=== PATIENT | male | born 1975 | race Caucasian/White ===

== ENCOUNTER 2016-04-14 06:48 | Inpatient (IN) | payer OTHER ==
[2016-04-14] VITALS (13 sets, daily range): BP systolic 114–135; BP diastolic 68–82
[~2016-04-14] VITALS: Ht 172.7 cm; Wt 87.5 kg
[~2016-04-14 06:48] MED LIST: ALEVE220 MG PO; ASPIR 8181 M1 PO; COLACE100 MG PO; FLEXERIL10 MG PO; GLUCOPHAGE500 MG PO; LANTUS 10100 UNITS/ SC; LANTUS 3 M100 UNITS1 SC; LANTUS100 UNIT/1 IJ; LEVEMIR FL100 UNIT/1 SC; LEVEMIR100 UNIT/2 SC; LISINOPRIL5 MG PO; LITE COAT ASPI325 M1 PO; METFORMIN HCL1000 M1 PO; METFORMIN HCL500 MG PO; Mag-Ox PO; NAPROSYN500 MG PO; NAPROXEN500 MG PO; NOVOLOG 10100 UNITS/ SC; NOVOLOG PE100 UNITS/ SC; NOVOLOG100 UNIT/1; ONDANSETRON ODT4 MG PO; PEN-VEE K,VEET500 MG PO; PENTASA500 MG PO; PROTONIX40 MG PO; REGLAN10 MG PO; TRAMADOL HCL50 MG PO; Tylenol Regular Stre PO; ULTRAM50 MG PO; Zestril,Prinivil PO; Zocor PO
[2016-04-14 08:06] LABS: EOSINOPHIL (%) 0.1 % (0-5); HEMATOCRIT 41.3 % (38.0-50.0); IMMATURE GRANULOCYTE (%) 0.3 % (0.0-0.7); IMMATURE GRANULOCYTE COUNT 0.6 K/uL; LYMPHOCYTE COUNT 1.2 K/uL (1.0-2.8); MCHC 34.9 G/DL (30.0-36.0); MCV 88.8 FL (86-99); MEAN PLAT.VOLUME 11.4 uM^3 (9.0-12.4); MONOCYTE (%) 2.8 % (3-12); MONOCYTE COUNT 0.5 K/uL (0-0.8); NEUTROPHIL (%) 90.5 % (45-76); NEUTROPHIL COUNT 16.9 K/uL (1.8-6.4); PLATELET COUNT 300 K/uL (156-360); RBC DIS.WIDTH-CV 13.1 % (11.8-14.6); RBC DIS.WIDTH-SD 41.7 % (39-53); RED BLOOD COUNT 4.65 M/uL (4.00-5.50); WHITE BLOOD COUNT 18.7 K/uL (4.1-10.2)
[2016-04-14 08:37] LABS: CARBON DIOXIDE (BICARBONATE) 11.3 MEQ/L (20-31)
[2016-04-14 08:51] LABS: ALKALINE PHOSPHATASE 109 IU/L (3-129); ANION GAP 32 MEQ/L (2-14); CHLORIDE 91 MEQ/L (99-109); GFR ESTIMATE (CALCULATED) > 59 mL/min/; LIPASE 8 U/L (1.0-51.0); POTASSIUM 4.9 MEQ/L (3.7-5.4); SAMPLE HEMOLYSIS CHECK 0; SAMPLE ICTERIC CHECK 0; SAMPLE LIPEMIA CHECK 0; SODIUM 132 MEQ/L (136-147); TOTAL BILIRUBIN 0.4 MG/DL (0.0-1.0); UREA NITROGEN (BUN) 16 mg/dL (9-23)
[2016-04-14 08:56] LABS: GLUCOSE 490 mg/dL (70-99)
[2016-04-14] MEDS ORDERED: NOVOLOG PE100 UNITS/ SC (09:55)
[2016-04-14] MEDS ORDERED: LEVEMIR100 UNIT/2 SC (09:56)
[2016-04-14 10:42] LABS: ADD MIUA? NO; BILIRUBIN NEGATIVE; BLOOD NEGATIVE; COLOR YELLOW ((YELLOW)); GLUCOSE (STRIP) >=1000; KETONES >=80; LEUKOCYTES NEGATIVE; NITRITE NEGATIVE; PH, URINE 5.5 (5-8); PROTEIN (STRIP) NEGATIVE; SPECIFIC GRAVITY 1.033 (1.000-1.030); UROBILINOGEN 0.2 MG/DL (0.2-1.0)
[2016-04-14 11:19] LABS: POINT-OF-CARE METER ID UU13113702
[2016-04-14 12:35] LABS: POINT-OF-CARE METER ID UU14162636
[2016-04-14 13:24] LABS: METH RESISTANT S AUREUS PCR NEGATIVE (NEGATIVE)
[2016-04-14 13:25] LABS: PROBE CHECK PASS; SPECIMEN PROCESSING CONTROL PASS
[2016-04-14 13:27] LABS: POINT-OF-CARE METER ID UU14162636
[2016-04-14 13:30] LABS: HEMATOCRIT 39.7 % (38.0-50.0); MCV 90.4 FL (86-99)
[2016-04-14 13:57] LABS: PROTHROMBIN TIME 9.7 (9.2-11.2)
[2016-04-14 14:08] LABS: POINT-OF-CARE METER ID UU14162636
[2016-04-14 14:10] LABS: Estimated Average Glucose 292 mg/dL (70-123); HEMOGLOBIN A1c (GLYCOHEMOGLOB) 11.8 % HGB (Below 5.7)
[2016-04-14 15:39] LABS: POINT-OF-CARE METER ID UU14162636
[2016-04-14 16:11] LABS: POINT-OF-CARE METER ID UU14162636
[2016-04-14 16:21] LABS: ANION GAP 14 MEQ/L (2-14); POTASSIUM 5.2 MEQ/L (3.7-5.4); SAMPLE HEMOLYSIS CHECK 0; SAMPLE ICTERIC CHECK 0; SAMPLE LIPEMIA CHECK 0; SODIUM 137 MEQ/L (136-147)
[2016-04-14 16:22] LABS: CHLORIDE 104 MEQ/L (99-109)
[2016-04-14 16:30] LABS: GFR ESTIMATE (CALCULATED) > 59 mL/min/; GLUCOSE 207 mg/dL (70-99); UREA NITROGEN (BUN) 12 mg/dL (9-23)
[2016-04-14 17:17] LABS: POINT-OF-CARE METER ID UU14162636
[2016-04-14 18:32] LABS: POINT-OF-CARE METER ID UU14162636
[2016-04-14 19:36] LABS: HEMATOCRIT 33.5 % (38.0-50.0); MCV 89.1 FL (86-99)
[2016-04-14 19:41] LABS: POINT-OF-CARE METER ID UU13113731
[2016-04-14 19:56] LABS: ANION GAP 11 MEQ/L (2-14); CHLORIDE 103 MEQ/L (99-109); GFR ESTIMATE (CALCULATED) > 59 mL/min/; GLUCOSE 235 mg/dL (70-99); POTASSIUM 4.3 MEQ/L (3.7-5.4); SAMPLE HEMOLYSIS CHECK 0; SAMPLE ICTERIC CHECK 0; SAMPLE LIPEMIA CHECK 0; SODIUM 135 MEQ/L (136-147); UREA NITROGEN (BUN) 11 mg/dL (9-23)
[2016-04-14 20:59] LABS: POINT-OF-CARE METER ID UU13113731
[2016-04-14 22:18] LABS: POINT-OF-CARE METER ID UU13113748
[2016-04-14 23:09] LABS: POINT-OF-CARE METER ID UU14162636
[2016-04-15] VITALS (21 sets, daily range): BP systolic 109–152; BP diastolic 61–87
[2016-04-15 00:41] LABS: CHLORIDE 103 mEq/L (99-109); SODIUM 135 mEq/L (136-147)
[2016-04-15 00:43] LABS: GLUCOSE 215 mg/dL (70-99)
[2016-04-15 00:44] LABS: ANION GAP 12 MEQ/L (2-14)
[2016-04-15 00:47] LABS: GFR ESTIMATE (CALCULATED) > 59 mL/min/
[2016-04-15 00:48] LABS: UREA NITROGEN (BUN) 9 mg/dL (9-23)
[2016-04-15 03:57] LABS: CHLORIDE 104 mEq/L (99-109); POTASSIUM 3.5 mEq/L (3.7-5.4); SODIUM 133 mEq/L (136-147)
[2016-04-15 03:59] LABS: GLUCOSE 202 mg/dL (70-99)
[2016-04-15 04:00] LABS: ANION GAP 9 MEQ/L (2-14)
[2016-04-15 04:03] LABS: GFR ESTIMATE (CALCULATED) > 59 mL/min/
[2016-04-15 04:04] LABS: UREA NITROGEN (BUN) 7 mg/dL (9-23)
[2016-04-15 09:08] LABS: ANION GAP 10 MEQ/L (2-14); CHLORIDE 103 MEQ/L (99-109); GFR ESTIMATE (CALCULATED) > 59 mL/min/; GLUCOSE 119 mg/dL (70-99); POTASSIUM 3.6 MEQ/L (3.7-5.4); SAMPLE HEMOLYSIS CHECK 0; SAMPLE ICTERIC CHECK 0; SAMPLE LIPEMIA CHECK 0; SODIUM 137 MEQ/L (136-147); UREA NITROGEN (BUN) 7 mg/dL (9-23)
[2016-04-15 12:46] LABS: ANION GAP 10 MEQ/L (2-14); CHLORIDE 102 MEQ/L (99-109); GFR ESTIMATE (CALCULATED) > 59 mL/min/; GLUCOSE 127 mg/dL (70-99); SAMPLE HEMOLYSIS CHECK 1; SAMPLE ICTERIC CHECK 0; SAMPLE LIPEMIA CHECK 0; SODIUM 137 MEQ/L (136-147); UREA NITROGEN (BUN) 6 mg/dL (9-23)
[2016-04-16 02:00] VITALS: BP 133/75
[2016-04-16 04:30] VITALS: BP 125/73
[2016-04-16 05:11] LABS: POINT-OF-CARE METER ID UU13113803
[2016-04-16 06:40] LABS: ANION GAP 11 MEQ/L (2-14); CHLORIDE 102 MEQ/L (99-109); GFR ESTIMATE (CALCULATED) > 59 mL/min/; SAMPLE HEMOLYSIS CHECK 0; SAMPLE ICTERIC CHECK 0; SAMPLE LIPEMIA CHECK 0; SODIUM 141 MEQ/L (136-147); UREA NITROGEN (BUN) 4 mg/dL (9-23)
[2016-04-16 06:41] LABS: GLUCOSE 43 mg/dL (70-99); POTASSIUM 2.7 MEQ/L (3.7-5.4)
[2016-04-16 07:54] VITALS: BP 144/86
[2016-04-16 08:17] LABS: POINT-OF-CARE USER ID ENVKC36
[2016-04-16 08:19] LABS: EOSINOPHIL (%) 3.1 % (0-5); EOSINOPHIL COUNT 0.2 K/uL (0-0.3); HEMATOCRIT 33.6 % (38.0-50.0); IMMATURE GRANULOCYTE (%) 0.1 % (0.0-0.7); LYMPHOCYTE COUNT 1.8 K/uL (1.0-2.8); MCH 31.1 PG (29.0-34.0); MCHC 35.1 G/DL (30.0-36.0); MCV 88.7 FL (86-99); MEAN PLAT.VOLUME 10.7 uM^3 (9.0-12.4); MONOCYTE COUNT 0.8 K/uL (0-0.8); NEUTROPHIL (%) 62.6 % (45-76); NEUTROPHIL COUNT 4.7 K/uL (1.8-6.4); PLATELET COUNT 217 K/uL (156-360); RBC DIS.WIDTH-CV 13.4 % (11.8-14.6); RBC DIS.WIDTH-SD 43.7 % (39-53); RED BLOOD COUNT 3.79 M/uL (4.00-5.50); WHITE BLOOD COUNT 7.5 K/uL (4.1-10.2)
[2016-04-16 11:34] VITALS: BP 126/79
[2016-04-16 11:42] LABS: POINT-OF-CARE USER ID ENVKC36
[2016-04-16] MEDS ORDERED: PROTONIX40 MG PO (12:16)
[2016-04-16] MEDS ORDERED: KLOR-CON M2020 MEQ PO (12:16)
== END 2016-04-16 13:55 | disposition home or self-care (01) | DRG 637 ==
LOC: EME → EDBD 06:48 → EME 06:48 → EDOF 09:38 → 4EAST 09:38 → EDOF 09:38 → 4WEST 09:38 → 4EAST 04-16 05:23
PROVIDERS: Emergency Medicine; Internal Medicine; Internal Medicine Pulmonary Disease; Physician Assistant
DX: E10.10 Type 1 diabetes mellitus with ketoacidosis without coma (principal); K29.71 Gastritis, unspecified, with bleeding; E87.1 Hypo-osmolality and hyponatremia; R65.11 Systemic inflammatory response syndrome (SIRS) of non-infectious origin with acute organ dysfunction; N17.9 Acute kidney failure, unspecified; K20.9 Esophagitis, unspecified; E87.6 Hypokalemia; J06.9 Acute upper respiratory infection, unspecified; D72.829 Elevated white blood cell count, unspecified; I10 Essential (primary) hypertension; E78.00 Pure hypercholesterolemia, unspecified; K21.9 Gastro-esophageal reflux disease without esophagitis; F32.9 Major depressive disorder, single episode, unspecified; G89.29 Other chronic pain; I25.2 Old myocardial infarction; K58.9 Irritable bowel syndrome, unspecified; Z87.11 Personal history of peptic ulcer disease; Z86.74 Personal history of sudden cardiac arrest; Z79.4 Long term (current) use of insulin
CPT/HCPCS: 80048; 80048 91; 80053; 81003; 82803; 82948; 83036; 83690; 83735; 84100; 85014; 85018; 85025; 85610; 85730; 86850; 86900; 86901; 87641; 93005; 99281; 99285; C9113; J1815; J2405; J7030; J7040; J7050; J7120; S0028

== ENCOUNTER 2016-06-05 08:15 | Emergency (ER) | payer OTHER ==
[~2016-06-05] VITALS: Ht 172.7 cm; Wt 91.7 kg
[~2016-06-05 08:15] MED LIST changes: +KLOR-CON M2020 MEQ PO
[2016-06-05] MEDS ORDERED: LEVEMIR FL100 UNIT/1 SC (08:32)
[2016-06-05 08:39] LABS: POINT-OF-CARE METER ID UU14100415
[2016-06-05 08:55] LABS: HEMATOCRIT 36.9 % (38.0-50.0); MCH 31.1 PG (29.0-34.0); MCHC 35.5 G/DL (30.0-36.0); MCV 87.6 FL (86-99); MEAN PLAT.VOLUME 10.1 uM^3 (9.0-12.4); PLATELET COUNT 254 K/uL (156-360); RBC DIS.WIDTH-CV 13.6 % (11.8-14.6); RBC DIS.WIDTH-SD 42.7 % (39-53); RED BLOOD COUNT 4.21 M/uL (4.00-5.50); WHITE BLOOD COUNT 5.1 K/uL (4.1-10.2)
[2016-06-05 09:03] LABS: CHLORIDE 103 mEq/L (99-109); POTASSIUM 4.1 mEq/L (3.7-5.4); SODIUM 140 mEq/L (136-147)
[2016-06-05 09:05] LABS: GLUCOSE 186 mg/dL (70-99)
[2016-06-05 09:06] LABS: ANION GAP 13 MEQ/L (2-14)
[2016-06-05 09:08] LABS: GFR ESTIMATE (CALCULATED) > 59 mL/min/
[2016-06-05 09:09] LABS: UREA NITROGEN (BUN) 15 mg/dL (9-23)
[2016-06-05] MEDS ORDERED: ZOFRAN ODT4 MG PO (10:15)
[2016-06-05] MEDS ORDERED: PROTONIX40 MG PO (10:15)
[2016-06-05 10:54] VITALS: BP 155/93
== END 2016-06-05 10:55 | disposition home or self-care (01) ==
LOC: EME 08:15
DX: K29.70 Gastritis, unspecified, without bleeding (principal); E78.5 Hyperlipidemia, unspecified; I10 Essential (primary) hypertension; I25.2 Old myocardial infarction; K21.9 Gastro-esophageal reflux disease without esophagitis; E11.9 Type 2 diabetes mellitus without complications; Z79.4 Long term (current) use of insulin
CPT/HCPCS: 80048; 82948; 85027; 86850; 86900; 86901; 93005; 99281; 99285; C9113

== ENCOUNTER 2016-07-03 07:10 | Observation (INO) | payer OTHER ==
[~2016-07-03] VITALS: Ht 172.7 cm; Wt 90.0 kg
[~2016-07-03 07:10] MED LIST changes: +ZOFRAN ODT4 MG PO
[2016-07-03 07:42] LABS: HEMATOCRIT 40.9 % (38.0-50.0); MCH 30.5 PG (29.0-34.0); MCHC 34.7 G/DL (30.0-36.0); MEAN PLAT.VOLUME 10.2 uM^3 (9.0-12.4); PLATELET COUNT 302 K/uL (156-360); RBC DIS.WIDTH-CV 12.8 % (11.8-14.6); RBC DIS.WIDTH-SD 41.3 % (39-53); RED BLOOD COUNT 4.65 M/uL (4.00-5.50)
[2016-07-03 08:07] LABS: CHLORIDE 100 mEq/L (99-109); POTASSIUM 3.9 mEq/L (3.7-5.4); SODIUM 137 mEq/L (136-147)
[2016-07-03 08:09] LABS: GLUCOSE 379 mg/dL (70-99)
[2016-07-03 08:10] LABS: ANION GAP 14 MEQ/L (2-14)
[2016-07-03 08:11] LABS: TOTAL BILIRUBIN 0.3 mg/dL (0.0-1.0)
[2016-07-03 08:12] LABS: ALKALINE PHOSPHATASE 73 IU/L (3-129)
[2016-07-03 08:13] LABS: GFR ESTIMATE (CALCULATED) > 59 mL/min/
[2016-07-03 08:14] LABS: UREA NITROGEN (BUN) 11 mg/dL (9-23)
[2016-07-03 09:25] LABS: POINT-OF-CARE METER ID UU13113702
[2016-07-03] MEDS ORDERED: SIMVASTATIN40 MG PO (09:49)
[2016-07-03] MEDS ORDERED: LISINOPRIL5 MG PO (09:49)
[2016-07-03] MEDS ORDERED: NOVOLOG PE100 UNITS/ SC (09:50)
[2016-07-03 11:47] LABS: ADD MIUA? NO; BILIRUBIN NEGATIVE; BLOOD NEGATIVE; COLOR YELLOW ((YELLOW)); GLUCOSE (STRIP) >=500; KETONES 5; LEUKOCYTES NEGATIVE; NITRITE NEGATIVE; PROTEIN (STRIP) NEGATIVE; SPECIFIC GRAVITY 1.027 (1.000-1.030); UCUL ADDED? NO; UROBILINOGEN 0.2 MG/DL (0.2-1.0)
[2016-07-03 11:48] LABS: POINT-OF-CARE METER ID UU13113702
[2016-07-03 17:43] VITALS: BP 133/82
[2016-07-03 18:11] LABS: POINT-OF-CARE METER ID UU13113700
[2016-07-03 19:00] VITALS: BP 139/81
[2016-07-03 19:50] LABS: HEMATOCRIT 37.4 % (38.0-50.0); MCV 90.3 FL (86-99)
[2016-07-03 20:57] LABS: POINT-OF-CARE METER ID UU13113831
[2016-07-04] VITALS: BP 138/74
[2016-07-04 03:18] LABS: POINT-OF-CARE METER ID UU13113700
[2016-07-04 06:14] VITALS: BP 139/76
[2016-07-04 07:10] LABS: HEMATOCRIT 35.4 % (38.0-50.0); MCH 30.4 PG (29.0-34.0); MCHC 33.3 G/DL (30.0-36.0); MCV 91.2 FL (86-99); MEAN PLAT.VOLUME 10.6 uM^3 (9.0-12.4); PLATELET COUNT 247 K/uL (156-360); RBC DIS.WIDTH-CV 13.7 % (11.8-14.6); RBC DIS.WIDTH-SD 46.1 % (39-53); RED BLOOD COUNT 3.88 M/uL (4.00-5.50)
[2016-07-04 07:27] VITALS: BP 109/67
[2016-07-04 07:57] LABS: HEMATOCRIT 34.3 % (38.0-50.0); MCV 90.7 FL (86-99)
[2016-07-04 08:55] LABS: POINT-OF-CARE METER ID UU13113700
[2016-07-04 09:19] VITALS: BP 115/69
[2016-07-04 10:39] VITALS: BP 105/58
[2016-07-04 14:32] LABS: POINT-OF-CARE METER ID UU13113700
[2016-07-04] MEDS ORDERED: REGLAN10 MG PO (16:28)
[2016-07-04 16:55] VITALS: BP 121/73
== END 2016-07-04 19:32 | disposition home or self-care (01) ==
LOC: EME 07:10 → EDOF 09:43 → 5WEST 09:43
PROVIDERS: Emergency Medicine; Hospitalist; Internal Medicine
DX: K20.9 Esophagitis, unspecified (principal); K92.0 Hematemesis; K44.9 Diaphragmatic hernia without obstruction or gangrene; K29.70 Gastritis, unspecified, without bleeding; K21.9 Gastro-esophageal reflux disease without esophagitis; E10.65 Type 1 diabetes mellitus with hyperglycemia; I10 Essential (primary) hypertension; E78.5 Hyperlipidemia, unspecified; G43.909 Migraine, unspecified, not intractable, without status migrainosus; F32.9 Major depressive disorder, single episode, unspecified
CPT/HCPCS: 80053; 81003; 82948; 85014; 85018; 85027; 88305; 88342 TC; 99281; 99284; C9113; G0378; J1815; J2405; J2765; J7030

== ENCOUNTER 2016-11-01 09:42 | Inpatient (IN) | payer OTHER ==
[~2016-11-01] VITALS: Ht 172.7 cm; Wt 92.1 kg
[~2016-11-01 09:42] MED LIST changes: +SIMVASTATIN40 MG PO
[2016-11-01 10:30] LABS: HEMATOCRIT 41.8 % (38.0-50.0); MCH 31.3 PG (29.0-34.0); MCHC 34.7 G/DL (30.0-36.0); MCV 90.3 FL (86-99); MEAN PLAT.VOLUME 10.8 uM^3 (9.0-12.4); PLATELET COUNT 279 K/uL (156-360); RBC DIS.WIDTH-SD 46.5 % (39-53); RED BLOOD COUNT 4.63 M/uL (4.00-5.50); WHITE BLOOD COUNT 12.5 K/uL (4.1-10.2)
[2016-11-01 10:42] LABS: CHLORIDE 100 mEq/L (99-109); POTASSIUM 4.1 mEq/L (3.7-5.4); SODIUM 140 mEq/L (136-147)
[2016-11-01 10:44] LABS: GLUCOSE 301 mg/dL (70-99)
[2016-11-01 10:45] LABS: ANION GAP 22 MEQ/L (2-14)
[2016-11-01 10:46] LABS: TOTAL BILIRUBIN 0.6 mg/dL (0.0-1.0)
[2016-11-01 10:47] LABS: ALKALINE PHOSPHATASE 88 IU/L (3-129)
[2016-11-01 10:48] LABS: GFR ESTIMATE (CALCULATED) 55 mL/min/
[2016-11-01 10:49] LABS: UREA NITROGEN (BUN) 16 mg/dL (9-23)
[2016-11-01 11:10] LABS: ADD MIUA? YES; BILIRUBIN NEGATIVE; BLOOD SMALL; COLOR STRAW ((YELLOW)); GLUCOSE (STRIP) >=500; KETONES 80; LEUKOCYTES NEGATIVE; NITRITE NEGATIVE; PROTEIN (STRIP) 30; UROBILINOGEN 0.2 MG/DL (0.2-1.0)
[2016-11-01 11:19] LABS: BACTERIA NONE SEEN /HPF; EPITHELIAL CELLS NONE SEEN /HPF; MUCUS TRACE /LPF; RED BLOOD CELLS 0-5 /HPF (0-5); UCUL ADDED? NO; WHITE BLOOD CELLS 0-5 /HPF (0-5)
[2016-11-01 11:27] LABS: CARBON DIOXIDE (BICARBONATE) 20.8 MEQ/L (20-31); MAGNESIUM 1.8 mg/dL (1.3-2.7)
[2016-11-01 11:34] LABS: LIPASE 8 U/L (1.0-51.0)
[2016-11-01] MEDS ORDERED: TUMS500 MG PO (12:48)
[2016-11-01 13:28] LABS: SERUM ETHYL ALCOHOL < 10 mg/dL
[2016-11-01 14:20] LABS: POINT-OF-CARE METER ID UU13113702
[2016-11-01 14:29] LABS: Estimated Average Glucose 260 mg/dL (70-123); HEMOGLOBIN A1c (GLYCOHEMOGLOB) 10.7 % HGB (Below 5.7)
[2016-11-01 16:03] VITALS: BP 133/90
[2016-11-01 16:22] LABS: ANION GAP 18 MEQ/L (2-14); CHLORIDE 101 MEQ/L (99-109); GFR ESTIMATE (CALCULATED) > 59 mL/min/; GLUCOSE 201 mg/dL (70-99); POTASSIUM 4.1 MEQ/L (3.7-5.4); SAMPLE HEMOLYSIS CHECK 0; SAMPLE ICTERIC CHECK 0; SAMPLE LIPEMIA CHECK 0; SODIUM 138 MEQ/L (136-147); UREA NITROGEN (BUN) 12 mg/dL (9-23)
[2016-11-01 20:02] VITALS: BP 134/84
[2016-11-01 21:02] LABS: ANION GAP 17 MEQ/L (2-14); CHLORIDE 95 MEQ/L (99-109); GFR ESTIMATE (CALCULATED) > 59 mL/min/; SAMPLE HEMOLYSIS CHECK 0; SAMPLE ICTERIC CHECK 0; SAMPLE LIPEMIA CHECK 0; UREA NITROGEN (BUN) 11 mg/dL (9-23)
[2016-11-01 21:04] LABS: GLUCOSE 362 mg/dL (70-99); SODIUM 131 MEQ/L (136-147)
[2016-11-01 23:46] VITALS: BP 127/74
[2016-11-02 00:32] LABS: CHLORIDE 103 mEq/L (99-109); POTASSIUM 3.9 mEq/L (3.7-5.4); SODIUM 137 mEq/L (136-147)
[2016-11-02 00:34] LABS: GLUCOSE 226 mg/dL (70-99)
[2016-11-02 00:35] LABS: ANION GAP 14 MEQ/L (2-14)
[2016-11-02 00:38] LABS: GFR ESTIMATE (CALCULATED) > 59 mL/min/
[2016-11-02 00:39] LABS: UREA NITROGEN (BUN) 13 mg/dL (9-23)
[2016-11-02 04:38] VITALS: BP 129/68
[2016-11-02 06:12] LABS: ANION GAP 15 MEQ/L (2-14); CHLORIDE 100 MEQ/L (99-109); GFR ESTIMATE (CALCULATED) > 59 mL/min/; GLUCOSE 174 mg/dL (70-99); POTASSIUM 3.9 MEQ/L (3.7-5.4); SAMPLE HEMOLYSIS CHECK 0; SAMPLE ICTERIC CHECK 0; SAMPLE LIPEMIA CHECK 0; SODIUM 137 MEQ/L (136-147); UREA NITROGEN (BUN) 11 mg/dL (9-23)
[2016-11-02 08:00] VITALS: BP 135/88
[2016-11-02 08:05] LABS: POINT-OF-CARE METER ID UU13113781
[2016-11-02 08:42] LABS: ANION GAP 11 MEQ/L (2-14); CHLORIDE 101 MEQ/L (99-109); GFR ESTIMATE (CALCULATED) > 59 mL/min/; POTASSIUM 3.7 MEQ/L (3.7-5.4); SAMPLE HEMOLYSIS CHECK 0; SAMPLE ICTERIC CHECK 0; SAMPLE LIPEMIA CHECK 0; SODIUM 138 MEQ/L (136-147); UREA NITROGEN (BUN) 11 mg/dL (9-23)
[2016-11-02 08:48] LABS: GLUCOSE 120 mg/dL (70-99)
[2016-11-02 11:59] LABS: POINT-OF-CARE METER ID UU13113781
[2016-11-02 12:28] VITALS: BP 136/83
[2016-11-02 12:44] LABS: ANION GAP 9 MEQ/L (2-14); CHLORIDE 99 MEQ/L (99-109); GFR ESTIMATE (CALCULATED) > 59 mL/min/; POTASSIUM 3.7 MEQ/L (3.7-5.4); SAMPLE HEMOLYSIS CHECK 0; SAMPLE ICTERIC CHECK 0; SAMPLE LIPEMIA CHECK 0; SODIUM 134 MEQ/L (136-147); UREA NITROGEN (BUN) 10 mg/dL (9-23)
[2016-11-02 12:49] LABS: GLUCOSE 267 mg/dL (70-99)
[2016-11-03 08:45] LABS: POINT-OF-CARE METER ID UU13113778
== END 2016-11-02 16:10 | disposition home or self-care (01) | DRG 639 ==
LOC: EME 09:42 → ENRESERV 12:56 → EDOF 12:58 → ENRESERV 13:47 → CANRESERV 13:47 → ENRESERV 14:19 → 4EAST 15:05
PROVIDERS: Emergency Medicine; Internal Medicine
DX: E10.10 Type 1 diabetes mellitus with ketoacidosis without coma (principal); I10 Essential (primary) hypertension; K21.9 Gastro-esophageal reflux disease without esophagitis; E78.5 Hyperlipidemia, unspecified; G89.29 Other chronic pain; M19.019 Primary osteoarthritis, unspecified shoulder; Z79.82 Long term (current) use of aspirin; Z79.4 Long term (current) use of insulin
CPT/HCPCS: 71010; 80048; 80048 91; 80053; 81003; 82010; 82803; 82948; 83036; 83690; 83735; 84100; 85027; 93005; 99281; 99285; G0480; J1650; J1815; J2405; J7030; J7120; S0028

== ENCOUNTER 2017-02-08 19:21 | Inpatient (IN) | payer OTHER ==
[~2017-02-08] VITALS: Ht 167.6 cm; Wt 86.0 kg
[~2017-02-08 19:21] MED LIST changes: +TUMS500 MG PO
[2017-02-08 20:02] LABS: MCH 30.9 PG (29.0-34.0); MCHC 33.6 G/DL (30.0-36.0); MCV 91.9 FL (86-99); MEAN PLAT.VOLUME 10.9 uM^3 (9.0-12.4); PLATELET COUNT 355 K/uL (156-360); RBC DIS.WIDTH-CV 13.1 % (11.8-14.6); RED BLOOD COUNT 4.57 M/uL (4.00-5.50); WHITE BLOOD COUNT 20.3 K/uL (4.1-10.2)
[2017-02-08 20:35] LABS: CARBON DIOXIDE (BICARBONATE) 14.5 MEQ/L (20-31)
[2017-02-08 20:41] LABS: CHLORIDE 95 mEq/L (99-109); POTASSIUM 4.7 mEq/L (3.7-5.4); SODIUM 135 mEq/L (136-147)
[2017-02-08 20:44] LABS: GLUCOSE 379 mg/dL (70-99)
[2017-02-08 20:45] LABS: ANION GAP 30 MEQ/L (2-14); TOTAL BILIRUBIN 0.5 mg/dL (0.0-1.0)
[2017-02-08 20:47] LABS: ALKALINE PHOSPHATASE 90 IU/L (3-129); GFR ESTIMATE (CALCULATED) 47 mL/min/
[2017-02-08 20:48] LABS: UREA NITROGEN (BUN) 21 mg/dL (9-23)
[2017-02-08 20:51] LABS: LIPASE 10 U/L (1.0-51.0)
[2017-02-08 20:57] LABS: POINT-OF-CARE METER ID UU13113702
[2017-02-08 20:57] LABS: TROP-I INTERPRETATION NEGATIVE; TROPONIN-I < 0.01 ng/mL (0.0-0.30)
[2017-02-08 22:00] LABS: POINT-OF-CARE METER ID UU13113702
[2017-02-08 22:54] LABS: ADD MIUA? NO; BILIRUBIN NEGATIVE; BLOOD NEGATIVE; COLOR STRAW ((YELLOW)); GLUCOSE (STRIP) >=500; KETONES 80; LEUKOCYTES NEGATIVE; NITRITE NEGATIVE; PROTEIN (STRIP) 30; UCUL ADDED? NO; UROBILINOGEN 0.2 MG/DL (0.2-1.0)
[2017-02-08] MEDS ORDERED: COLACE100 MG PO (22:54)
[2017-02-08] MEDS ORDERED: SIMVASTATIN40 MG PO (22:56)
[2017-02-08] MEDS ORDERED: ASPIR 8181 M1 PO (22:56)
[2017-02-08] MEDS ORDERED: LISINOPRIL5 MG PO (22:57)
[2017-02-08 23:13] LABS: POINT-OF-CARE METER ID UU13113702
[2017-02-08 23:58] VITALS: BP 140/91
[2017-02-09] VITALS (24 sets, daily range): BP systolic 108–164; BP diastolic 51–105
[2017-02-09 00:21] LABS: POINT-OF-CARE METER ID UU14174217
[2017-02-09 00:24] LABS: CHLORIDE 103 mEq/L (99-109); POTASSIUM 5.2 mEq/L (3.7-5.4); SODIUM 138 mEq/L (136-147)
[2017-02-09 00:26] LABS: GLUCOSE 308 mg/dL (70-99)
[2017-02-09 00:27] LABS: ANION GAP 25 MEQ/L (2-14)
[2017-02-09 00:30] LABS: GFR ESTIMATE (CALCULATED) 55 mL/min/; UREA NITROGEN (BUN) 20 mg/dL (9-23)
[2017-02-09 01:15] LABS: METH RESISTANT S AUREUS PCR NEGATIVE (NEGATIVE)
[2017-02-09 01:18] LABS: PROBE CHECK PASS; SPECIMEN PROCESSING CONTROL PASS
[2017-02-09 01:28] LABS: POINT-OF-CARE METER ID UU14174217
[2017-02-09 02:34] LABS: POINT-OF-CARE METER ID UU14174217
[2017-02-09 03:30] LABS: POINT-OF-CARE METER ID UU14174217
[2017-02-09 04:31] LABS: POINT-OF-CARE METER ID UU14174217
[2017-02-09 05:41] LABS: POINT-OF-CARE METER ID UU14174217
[2017-02-09 05:55] LABS: ANION GAP 20 MEQ/L (2-14); CHLORIDE 106 MEQ/L (99-109); GFR ESTIMATE (CALCULATED) > 59 mL/min/; GLUCOSE 184 mg/dL (70-99); POTASSIUM 4.7 MEQ/L (3.7-5.4); SAMPLE HEMOLYSIS CHECK 0; SAMPLE ICTERIC CHECK 0; SAMPLE LIPEMIA CHECK 0; SODIUM 142 MEQ/L (136-147); UREA NITROGEN (BUN) 20 mg/dL (9-23)
[2017-02-09 06:36] LABS: POINT-OF-CARE METER ID UU14174217
[2017-02-09 07:39] LABS: POINT-OF-CARE METER ID UU14174217
[2017-02-09 08:10] LABS: Estimated Average Glucose 286 mg/dL (70-123); HEMOGLOBIN A1c (GLYCOHEMOGLOB) 11.6 % HGB (Below 5.7)
[2017-02-09 08:59] LABS: POINT-OF-CARE METER ID UU14174217
[2017-02-09 09:19] LABS: ANION GAP 18 MEQ/L (2-14); CHLORIDE 106 MEQ/L (99-109); POTASSIUM 4.6 MEQ/L (3.7-5.4); SAMPLE HEMOLYSIS CHECK 1; SAMPLE ICTERIC CHECK 0; SAMPLE LIPEMIA CHECK 0; SODIUM 140 MEQ/L (136-147)
[2017-02-09 09:24] LABS: GFR ESTIMATE (CALCULATED) > 59 mL/min/; GLUCOSE 157 mg/dL (70-99); UREA NITROGEN (BUN) 19 mg/dL (9-23)
[2017-02-09 10:02] LABS: POINT-OF-CARE METER ID UU14174217
[2017-02-09 11:02] LABS: POINT-OF-CARE METER ID UU14174217
[2017-02-09 12:02] LABS: POINT-OF-CARE METER ID UU14174217
[2017-02-09 12:21] LABS: ANION GAP 18 MEQ/L (2-14); CHLORIDE 107 MEQ/L (99-109); GFR ESTIMATE (CALCULATED) > 59 mL/min/; GLUCOSE 186 mg/dL (70-99); POTASSIUM 4.5 MEQ/L (3.7-5.4); SAMPLE HEMOLYSIS CHECK 0; SAMPLE ICTERIC CHECK 0; SAMPLE LIPEMIA CHECK 0; SODIUM 141 MEQ/L (136-147); UREA NITROGEN (BUN) 18 mg/dL (9-23)
[2017-02-09 13:05] LABS: POINT-OF-CARE METER ID UU14174217
[2017-02-09 14:07] LABS: POINT-OF-CARE METER ID UU14174217
[2017-02-09 15:10] LABS: POINT-OF-CARE METER ID UU14174217
[2017-02-09 16:00] LABS: POINT-OF-CARE METER ID UU14174217
[2017-02-09 16:56] LABS: ANION GAP 13 MEQ/L (2-14); CHLORIDE 108 MEQ/L (99-109); POTASSIUM 4.5 MEQ/L (3.7-5.4); SAMPLE HEMOLYSIS CHECK 0; SAMPLE ICTERIC CHECK 0; SAMPLE LIPEMIA CHECK 0; SODIUM 141 MEQ/L (136-147)
[2017-02-09 17:02] LABS: GFR ESTIMATE (CALCULATED) > 59 mL/min/; GLUCOSE 196 mg/dL (70-99); UREA NITROGEN (BUN) 16 mg/dL (9-23)
[2017-02-09 17:21] LABS: POINT-OF-CARE METER ID UU14174217
[2017-02-09 18:25] LABS: POINT-OF-CARE METER ID UU14174217
[2017-02-09 19:41] LABS: POINT-OF-CARE METER ID UU14208751; POINT-OF-CARE USER ID PHATLC
[2017-02-09 20:45] LABS: POINT-OF-CARE METER ID UU14208751; POINT-OF-CARE USER ID PHATLC
[2017-02-09 20:48] LABS: ANION GAP 11 MEQ/L (2-14); CHLORIDE 105 MEQ/L (99-109); POTASSIUM 3.9 MEQ/L (3.7-5.4); SAMPLE HEMOLYSIS CHECK 1; SAMPLE ICTERIC CHECK 0; SAMPLE LIPEMIA CHECK 0; SODIUM 137 MEQ/L (136-147)
[2017-02-09 20:53] LABS: GFR ESTIMATE (CALCULATED) > 59 mL/min/; GLUCOSE 157 mg/dL (70-99); UREA NITROGEN (BUN) 15 mg/dL (9-23)
[2017-02-09 23:08] LABS: CHLORIDE 107 mEq/L (99-109); POTASSIUM 3.5 mEq/L (3.7-5.4); SODIUM 138 mEq/L (136-147)
[2017-02-09 23:10] LABS: GLUCOSE 146 mg/dL (70-99)
[2017-02-09 23:11] LABS: ANION GAP 12 MEQ/L (2-14)
[2017-02-09 23:14] LABS: GFR ESTIMATE (CALCULATED) > 59 mL/min/; UREA NITROGEN (BUN) 15 mg/dL (9-23)
[2017-02-10] VITALS (20 sets, daily range): BP systolic 104–143; BP diastolic 56–90
[2017-02-10 08:56] LABS: POINT-OF-CARE METER ID UU13113748
[2017-02-10 12:25] LABS: ANION GAP 12 MEQ/L (2-14); CHLORIDE 101 MEQ/L (99-109); GFR ESTIMATE (CALCULATED) > 59 mL/min/; GLUCOSE 179 mg/dL (70-99); POTASSIUM 3.7 MEQ/L (3.7-5.4); SAMPLE HEMOLYSIS CHECK 0; SAMPLE ICTERIC CHECK 0; SAMPLE LIPEMIA CHECK 0; SODIUM 135 MEQ/L (136-147); UREA NITROGEN (BUN) 15 mg/dL (9-23)
[2017-02-10 17:53] LABS: POINT-OF-CARE METER ID UU14162636
[2017-02-10 20:50] LABS: POINT-OF-CARE METER ID UU14174225
[2017-02-10 23:04] LABS: CHLORIDE 100 mEq/L (99-109); POTASSIUM 3.5 mEq/L (3.7-5.4); SODIUM 133 mEq/L (136-147)
[2017-02-10 23:07] LABS: ANION GAP 9 MEQ/L (2-14)
[2017-02-10 23:10] LABS: GFR ESTIMATE (CALCULATED) > 59 mL/min/; UREA NITROGEN (BUN) 16 mg/dL (9-23)
[2017-02-10 23:14] LABS: GLUCOSE 298 mg/dL (70-99)
[2017-02-11 00:45] VITALS: BP 110/64
[2017-02-11 06:50] VITALS: BP 134/89
[2017-02-11 08:31] LABS: POINT-OF-CARE METER ID UU14174225; POINT-OF-CARE USER ID STWAMT
[2017-02-11 08:58] LABS: POINT-OF-CARE METER ID UU14174225; POINT-OF-CARE USER ID STWAMT
[2017-02-11 11:10] LABS: POINT-OF-CARE METER ID UU14174225
[2017-02-11 16:00] VITALS: BP 125/73
[2017-02-11 17:40] LABS: POINT-OF-CARE METER ID UU14174225
== END 2017-02-11 18:15 | disposition left against medical advice (07) | DRG 638 ==
LOC: EME 19:21 → EDOF 22:34 → 4WEST 22:34 → ENRESERV 22:49 → 4WEST 23:45 → ENRESERV 02-10 16:21 → 5SOUTH 02-10 19:03
PROVIDERS: Emergency Medicine; Hospitalist; Internal Medicine Critical Care Medicine; Surgery
DX: E10.10 Type 1 diabetes mellitus with ketoacidosis without coma (principal); E86.0 Dehydration; I10 Essential (primary) hypertension; K21.9 Gastro-esophageal reflux disease without esophagitis; K58.0 Irritable bowel syndrome with diarrhea; E78.5 Hyperlipidemia, unspecified; D72.829 Elevated white blood cell count, unspecified; N17.9 Acute kidney failure, unspecified; K92.0 Hematemesis; I25.2 Old myocardial infarction; Z86.74 Personal history of sudden cardiac arrest; Z79.4 Long term (current) use of insulin; Z87.11 Personal history of peptic ulcer disease
CPT/HCPCS: 71010; 74176; 76705; 80048; 80048 91; 80053; 81003; 82010; 82803; 82948; 83036; 83605; 83690; 84100; 84484; 85027; 86850; 86900; 86901; 87641; 93005; 99281; 99285; C9113; J1650; J1815; J2405; J2765; J7030; J7040; J7050; S0028

== ENCOUNTER 2017-02-20 23:54 | Inpatient (IN) | payer OTHER ==
[~2017-02-20] VITALS: Ht 172.7 cm; Wt 89.1 kg
[2017-02-21] VITALS (20 sets, daily range): BP systolic 110–161; BP diastolic 66–96
[2017-02-21 00:18] LABS: HEMATOCRIT 41.4 % (38.0-50.0); MCH 31.3 PG (29.0-34.0); MCHC 33.3 G/DL (30.0-36.0); MCV 93.9 FL (86-99); MEAN PLAT.VOLUME 10.9 uM^3 (9.0-12.4); PLATELET COUNT 380 K/uL (156-360); RBC DIS.WIDTH-CV 13.2 % (11.8-14.6); RBC DIS.WIDTH-SD 45.7 % (39-53); RED BLOOD COUNT 4.41 M/uL (4.00-5.50); WHITE BLOOD COUNT 15.9 K/uL (4.1-10.2)
[2017-02-21 00:26] LABS: CHLORIDE 95 mEq/L (99-109); SODIUM 132 mEq/L (136-147)
[2017-02-21 00:30] LABS: ANION GAP 30 MEQ/L (2-14)
[2017-02-21 00:31] LABS: TOTAL BILIRUBIN 0.6 mg/dL (0.0-1.0)
[2017-02-21 00:32] LABS: ALKALINE PHOSPHATASE 107 IU/L (3-129); GFR ESTIMATE (CALCULATED) 51 mL/min/
[2017-02-21 00:33] LABS: UREA NITROGEN (BUN) 18 mg/dL (9-23)
[2017-02-21 00:36] LABS: LIPASE 75 U/L (1.0-51.0)
[2017-02-21 00:43] LABS: GLUCOSE 537 mg/dL (70-99)
[2017-02-21 02:03] LABS: CARBON DIOXIDE (BICARBONATE) > 10.0 MEQ/L (20-31); VENOUS PCO2 31 mm Hg (41-51)
[2017-02-21 02:54] LABS: ADD MIUA? NO; BILIRUBIN NEGATIVE; BLOOD NEGATIVE; COLOR COLORLESS ((YELLOW)); GLUCOSE (STRIP) >=500; KETONES 80; LEUKOCYTES NEGATIVE; NITRITE NEGATIVE; PROTEIN (STRIP) NEGATIVE; SPECIFIC GRAVITY 1.021 (1.000-1.030); UCUL ADDED? NO; UROBILINOGEN 0.2 MG/DL (0.2-1.0)
[2017-02-21 04:05] LABS: POINT-OF-CARE METER ID UU13113748
[2017-02-21 04:24] LABS: POINT-OF-CARE METER ID UU13113748
[2017-02-21 05:01] LABS: METH RESISTANT S AUREUS PCR NEGATIVE (NEGATIVE)
[2017-02-21 05:18] LABS: POINT-OF-CARE METER ID UU13113748
[2017-02-21 05:53] LABS: PROBE CHECK PASS; SPECIMEN PROCESSING CONTROL PASS
[2017-02-21 06:09] LABS: POINT-OF-CARE METER ID UU13113748
[2017-02-21 07:32] LABS: POINT-OF-CARE METER ID UU13113748
[2017-02-21 07:51] LABS: Estimated Average Glucose 280 mg/dL (70-123); HEMOGLOBIN A1c (GLYCOHEMOGLOB) 11.4 % HGB (Below 5.7)
[2017-02-21 08:05] LABS: ANION GAP 21 MEQ/L (2-14); CHLORIDE 104 MEQ/L (99-109); GLUCOSE 273 mg/dL (70-99); POTASSIUM 4.8 MEQ/L (3.7-5.4); SAMPLE HEMOLYSIS CHECK 0; SAMPLE ICTERIC CHECK 0; SAMPLE LIPEMIA CHECK 0; SODIUM 138 MEQ/L (136-147); UREA NITROGEN (BUN) 16 mg/dL (9-23)
[2017-02-21 08:11] LABS: GFR ESTIMATE (CALCULATED) > 59 mL/min/
[2017-02-21 08:33] LABS: POINT-OF-CARE METER ID UU13113748
[2017-02-21 09:21] LABS: POINT-OF-CARE METER ID UU13113748
[2017-02-21 10:24] LABS: POINT-OF-CARE METER ID UU13113731
[2017-02-21 10:32] LABS: ANION GAP 15 MEQ/L (2-14); CHLORIDE 106 MEQ/L (99-109); GFR ESTIMATE (CALCULATED) > 59 mL/min/; GLUCOSE 223 mg/dL (70-99); SAMPLE HEMOLYSIS CHECK 0; SAMPLE ICTERIC CHECK 0; SAMPLE LIPEMIA CHECK 0; SODIUM 139 MEQ/L (136-147); UREA NITROGEN (BUN) 15 mg/dL (9-23)
[2017-02-21 11:20] LABS: POINT-OF-CARE METER ID UU13113748
[2017-02-21 12:09] LABS: POINT-OF-CARE METER ID UU13113748
[2017-02-21 13:19] LABS: POINT-OF-CARE METER ID UU13113731
[2017-02-21 14:11] LABS: POINT-OF-CARE METER ID UU14314082
[2017-02-21 14:46] LABS: ANION GAP 13 MEQ/L (2-14); CHLORIDE 104 MEQ/L (99-109); GFR ESTIMATE (CALCULATED) > 59 mL/min/; GLUCOSE 176 mg/dL (70-99); POTASSIUM 4.1 MEQ/L (3.7-5.4); SAMPLE HEMOLYSIS CHECK 0; SAMPLE ICTERIC CHECK 0; SAMPLE LIPEMIA CHECK 0; SODIUM 139 MEQ/L (136-147); UREA NITROGEN (BUN) 15 mg/dL (9-23)
[2017-02-21 15:08] LABS: POINT-OF-CARE METER ID UU13113748
[2017-02-21 17:04] LABS: POINT-OF-CARE METER ID UU13113748
[2017-02-21 17:55] LABS: POINT-OF-CARE METER ID UU13113748
[2017-02-21 18:50] LABS: ANION GAP 12 MEQ/L (2-14); CHLORIDE 102 MEQ/L (99-109); GFR ESTIMATE (CALCULATED) > 59 mL/min/; GLUCOSE 121 mg/dL (70-99); POTASSIUM 3.7 MEQ/L (3.7-5.4); SAMPLE HEMOLYSIS CHECK 0; SAMPLE ICTERIC CHECK 0; SAMPLE LIPEMIA CHECK 0; SODIUM 138 MEQ/L (136-147); UREA NITROGEN (BUN) 14 mg/dL (9-23)
[2017-02-21 22:59] LABS: ANION GAP 10 MEQ/L (2-14); CHLORIDE 102 MEQ/L (99-109); GFR ESTIMATE (CALCULATED) > 59 mL/min/; GLUCOSE 158 mg/dL (70-99); POTASSIUM 3.7 MEQ/L (3.7-5.4); SAMPLE HEMOLYSIS CHECK 0; SAMPLE ICTERIC CHECK 0; SAMPLE LIPEMIA CHECK 0; SODIUM 137 MEQ/L (136-147); UREA NITROGEN (BUN) 14 mg/dL (9-23)
[2017-02-21 23:16] LABS: POINT-OF-CARE METER ID UU13113748; POINT-OF-CARE USER ID RADDRS44
[2017-02-22] VITALS (8 sets, daily range): BP systolic 95–123; BP diastolic 55–84
[2017-02-22 06:11] LABS: ANION GAP 10 MEQ/L (2-14); CHLORIDE 103 MEQ/L (99-109); GFR ESTIMATE (CALCULATED) > 59 mL/min/; POTASSIUM 3.4 MEQ/L (3.7-5.4); SAMPLE HEMOLYSIS CHECK 0; SAMPLE ICTERIC CHECK 0; SAMPLE LIPEMIA CHECK 0; SODIUM 137 MEQ/L (136-147); UREA NITROGEN (BUN) 13 mg/dL (9-23)
[2017-02-22 06:12] LABS: GLUCOSE 60 mg/dL (70-99)
[2017-02-22 09:12] LABS: POINT-OF-CARE METER ID UU13113731
[2017-02-22 11:47] LABS: POINT-OF-CARE METER ID UU13113731
[2017-02-22 16:48] LABS: POINT-OF-CARE METER ID UU13113717
[2017-02-22 21:13] LABS: POINT-OF-CARE METER ID UU13113717
[2017-02-22 21:27] LABS: POINT-OF-CARE METER ID UU13113702
[2017-02-22 21:28] LABS: POINT-OF-CARE METER ID UU13113778
[2017-02-23 00:18] VITALS: BP 133/62
[2017-02-23 03:36] VITALS: BP 135/80
[2017-02-23 06:50] LABS: HEMATOCRIT 34.1 % (38.0-50.0); MCH 31.7 PG (29.0-34.0); MCHC 35.2 G/DL (30.0-36.0); MEAN PLAT.VOLUME 9.7 uM^3 (9.0-12.4); RBC DIS.WIDTH-CV 13.3 % (11.8-14.6); RED BLOOD COUNT 3.79 M/uL (4.00-5.50); WHITE BLOOD COUNT 7.9 K/uL (4.1-10.2)
[2017-02-23 07:05] LABS: ALKALINE PHOSPHATASE 71 IU/L (3-129); ANION GAP 8 MEQ/L (2-14); CHLORIDE 103 MEQ/L (99-109); GFR ESTIMATE (CALCULATED) > 59 mL/min/; GLUCOSE 65 mg/dL (70-99); MAGNESIUM 1.8 mg/dl (1.3-2.7); POTASSIUM 3.8 MEQ/L (3.7-5.4); SAMPLE HEMOLYSIS CHECK 1; SAMPLE ICTERIC CHECK 0; SAMPLE LIPEMIA CHECK 0; SODIUM 140 MEQ/L (136-147); TOTAL BILIRUBIN 0.4 MG/DL (0.0-1.0); UREA NITROGEN (BUN) 9 mg/dL (9-23)
[2017-02-23 07:15] VITALS: BP 136/85
[2017-02-23 07:22] LABS: PLAT.SUFFICIENCY ADEQUATE; PLATELET COUNT 211 K/uL (156-360)
[2017-02-23 07:36] LABS: POINT-OF-CARE METER ID UU13113717
[2017-02-23 11:18] VITALS: BP 121/66
[2017-02-23 12:15] LABS: POINT-OF-CARE METER ID UU13113717
== END 2017-02-23 14:51 | disposition home or self-care (01) | DRG 638 ==
LOC: EME 23:54 → ENRESERV 02-21 01:33 → EDOF 02-21 01:33 → ENRESERV 02-21 02:19 → 4WEST 02-21 03:22 → ENRESERV 02-22 06:41 → 5SOUTH 02-22 14:47
PROVIDERS: Emergency Medicine; Internal Medicine; Internal Medicine Critical Care Medicine
DX: E10.10 Type 1 diabetes mellitus with ketoacidosis without coma (principal); N17.9 Acute kidney failure, unspecified; E83.39 Other disorders of phosphorus metabolism; E86.1 Hypovolemia; E87.6 Hypokalemia; I10 Essential (primary) hypertension; E78.5 Hyperlipidemia, unspecified; I25.10 Atherosclerotic heart disease of native coronary artery without angina pectoris; K21.0 Gastro-esophageal reflux disease with esophagitis; K29.70 Gastritis, unspecified, without bleeding; Z91.14 Patient's other noncompliance with medication regimen; Z91.11 Patient's noncompliance with dietary regimen; I25.2 Old myocardial infarction; Z79.4 Long term (current) use of insulin; Z86.74 Personal history of sudden cardiac arrest; Z87.11 Personal history of peptic ulcer disease
CPT/HCPCS: 80048; 80048 91; 80053; 81003; 82010; 82803; 82948; 83036; 83690; 83735; 84100; 85027; 86850; 86900; 86901; 87641; 99281; 99285; C9113; J1815; J2405; J2765; J7030; J7040; J7050

== ENCOUNTER 2017-04-27 07:05 | Inpatient (IN) | payer OTHER ==
[~2017-04-27] VITALS: Ht 172.7 cm; Wt 85.5 kg
[2017-04-27] VITALS (16 sets, daily range): BP systolic 103–149; BP diastolic 64–94
[2017-04-27 07:30] LABS: HEMATOCRIT 43.3 % (38.0-50.0); HEMOGLOBIN 14.8 G/DL (12.5-16.6); MCH 30.9 PG (29.0-34.0); MCHC 34.2 G/DL (30.0-36.0); MCV 90.4 FL (86-99); PLATELET COUNT 364 K/uL (156-360); RBC DIS.WIDTH-CV 13.5 % (11.8-14.6); RED BLOOD COUNT 4.79 M/uL (4.00-5.50); WHITE BLOOD COUNT 21.3 K/uL (4.1-10.2)
[2017-04-27 07:52] LABS: ALBUMIN 4.7 G/DL (3.2-4.8); CHLORIDE 94 MEQ/L (99-109); POTASSIUM 4.6 MEQ/L (3.7-5.4); SODIUM 140 MEQ/L (136-147); TOTAL BILIRUBIN 0.8 MG/DL (0.0-1.0)
[2017-04-27 08:09] LABS: ALKALINE PHOSPHATASE 90 IU/L (3-129); ALT (GPT) 85 IU/L (3-49); AST (GOT) 39 IU/L (2-34); CREATININE 1.3 MG/DL (0.6-1.3); GFR ESTIMATE (CALCULATED) > 59 mL/min/ (58.99-99999); TOTAL PROTEIN 7.9 G/DL (6.4-8.3); UREA NITROGEN (BUN) 28 mg/dL (9-23)
[2017-04-27 08:10] LABS: GLUCOSE 494 mg/dL (70-99)
[2017-04-27 08:22] LABS: APPEARANCE CLEAR ((CLEAR)); BILIRUBIN NEGATIVE; BLOOD SMALL; COLOR STRAW ((YELLOW)); GLUCOSE (STRIP) >=500; KETONES 80; LEUKOCYTES NEGATIVE; NITRITE NEGATIVE; PROTEIN (STRIP) NEGATIVE; SPECIFIC GRAVITY 1.025 (1.000-1.030); UROBILINOGEN 0.2 MG/DL (0.2-1.0)
[2017-04-27 08:24] LABS: BACTERIA NONE SEEN /HPF; EPITHELIAL CELLS NONE SEEN /HPF; MUCUS NONE SEEN /LPF; RED BLOOD CELLS 0-5 /HPF (0-5); UCUL ADDED? NO; WHITE BLOOD CELLS 0-5 /HPF (0-5)
[2017-04-27 13:49] LABS: GFR ESTIMATE (CALCULATED) > 59 mL/min/ (58.99-99999); GLUCOSE 288 mg/dL (70-99); PHOSPHORUS 2.1 mg/dL (2.5-4.9); POTASSIUM 4.6 MEQ/L (3.7-5.4); SODIUM 143 MEQ/L (136-147); UREA NITROGEN (BUN) 26 mg/dL (9-23)
[2017-04-27 13:53] LABS: CHLORIDE 107 MEQ/L (99-109)
[2017-04-27 14:04] LABS: HEMOGLOBIN A1c (GLYCOHEMOGLOB) 11.6 % (Below 5.7)
[2017-04-27 16:33] LABS: CHLORIDE 108 MEQ/L (99-109); POTASSIUM 4.3 MEQ/L (3.7-5.4); SODIUM 146 MEQ/L (136-147)
[2017-04-27 16:39] LABS: CREATININE 0.9 MG/DL (0.6-1.3); GFR ESTIMATE (CALCULATED) > 59 mL/min/ (58.99-99999); GLUCOSE 197 mg/dL (70-99); UREA NITROGEN (BUN) 24 mg/dL (9-23)
[2017-04-27 19:45] LABS: HEMATOCRIT 37.5 % (38.0-50.0); HEMOGLOBIN 12.9 G/DL (12.5-16.6)
[2017-04-27 19:58] LABS: CHLORIDE 108 MEQ/L (99-109); POTASSIUM 3.9 MEQ/L (3.7-5.4); SODIUM 144 MEQ/L (136-147)
[2017-04-27 20:04] LABS: CREATININE 0.9 MG/DL (0.6-1.3); GFR ESTIMATE (CALCULATED) > 59 mL/min/ (58.99-99999); GLUCOSE 188 mg/dL (70-99); PHOSPHORUS 1.9 mg/dL (2.5-4.9); UREA NITROGEN (BUN) 22 mg/dL (9-23)
[2017-04-27 20:38] LABS: BASOPHIL (%) 0.1 % (0-1); EOSINOPHIL (%) 0 % (0-5); IMMATURE GRANULOCYTE (%) 0.6 % (0.0-0.7); LYMPHOCYTE (%) 7.3 % (15-42); LYMPHOCYTE COUNT 1.1 K/uL (1.0-2.8); MCH 31.1 PG (29.0-34.0); MCHC 34.1 G/DL (30.0-36.0); MONOCYTE (%) 7.7 % (3-12); MONOCYTE COUNT 1.1 K/uL (0-0.8); NEUTROPHIL (%) 84.3 % (45-76); NEUTROPHIL COUNT 12.1 K/uL (1.8-6.4); PLATELET COUNT 296 K/uL (156-360); RBC DIS.WIDTH-CV 14.1 % (11.8-14.6); RBC DIS.WIDTH-SD 47.1 % (39-53); RED BLOOD COUNT 4.15 M/uL (4.00-5.50); WHITE BLOOD COUNT 14.4 K/uL (4.1-10.2)
[2017-04-28] VITALS (24 sets, daily range): BP systolic 110–146; BP diastolic 69–94
[2017-04-28 00:56] LABS: CHLORIDE 107 mEq/L (99-109); POTASSIUM 3.6 mEq/L (3.7-5.4); SODIUM 142 mEq/L (136-147)
[2017-04-28 00:58] LABS: GLUCOSE 143 mg/dL (70-99)
[2017-04-28 01:02] LABS: GFR ESTIMATE (CALCULATED) > 59 mL/min/ (58.99-99999); PHOSPHORUS 2.9 mg/dL (2.5-4.9)
[2017-04-28 01:03] LABS: UREA NITROGEN (BUN) 23 mg/dL (9-23)
[2017-04-28 01:42] LABS: ALBUMIN 4.1 g/dL (3.2-4.8)
[2017-04-28 01:43] LABS: MAGNESIUM 1.9 mg/dL (1.3-2.7)
[2017-04-28 01:45] LABS: TOTAL PROTEIN 6.5 g/dL (6.4-8.3)
[2017-04-28 01:47] LABS: TOTAL BILIRUBIN 0.6 mg/dL (0.0-1.0)
[2017-04-28 01:48] LABS: ALKALINE PHOSPHATASE 79 IU/L (3-129)
[2017-04-28 01:50] LABS: AST (GOT) 27 IU/L (2-34); DIRECT BILIRUBIN 0.3 mg/dL (0.0-0.3)
[2017-04-28 01:51] LABS: ALT (GPT) 71 IU/L (3-49)
[2017-04-28 04:26] LABS: HEMATOCRIT 35.3 % (38.0-50.0); HEMOGLOBIN 12.4 G/DL (12.5-16.6); MCV 90.5 FL (86-99)
[2017-04-28 04:37] LABS: CHLORIDE 106 mEq/L (99-109); POTASSIUM 3.7 mEq/L (3.7-5.4); SODIUM 140 mEq/L (136-147)
[2017-04-28 04:39] LABS: GLUCOSE 164 mg/dL (70-99)
[2017-04-28 04:43] LABS: GFR ESTIMATE (CALCULATED) > 59 mL/min/ (58.99-99999); UREA NITROGEN (BUN) 22 mg/dL (9-23)
[2017-04-28 07:29] LABS: CHLORIDE 105 MEQ/L (99-109); POTASSIUM 3.8 MEQ/L (3.7-5.4); SODIUM 139 MEQ/L (136-147)
[2017-04-28 07:34] LABS: CREATININE 0.8 MG/DL (0.6-1.3); GFR ESTIMATE (CALCULATED) > 59 mL/min/ (58.99-99999); GLUCOSE 172 mg/dL (70-99); PHOSPHORUS 2.1 mg/dL (2.5-4.9); UREA NITROGEN (BUN) 21 mg/dL (9-23)
[2017-04-28 12:04] LABS: HEMATOCRIT 34.8 % (38.0-50.0); HEMOGLOBIN 11.8 G/DL (12.5-16.6); MCV 92.6 FL (86-99)
[2017-04-28 20:06] LABS: HEMATOCRIT 33.8 % (38.0-50.0); HEMOGLOBIN 11.5 G/DL (12.5-16.6); MCV 91.8 FL (86-99)
[2017-04-28 20:43] LABS: CHLORIDE 105 MEQ/L (99-109); CREATININE 0.8 MG/DL (0.6-1.3); GFR ESTIMATE (CALCULATED) > 59 mL/min/ (58.99-99999); GLUCOSE 151 mg/dL (70-99); POTASSIUM 3.2 MEQ/L (3.7-5.4); SODIUM 138 MEQ/L (136-147); UREA NITROGEN (BUN) 15 mg/dL (9-23)
[2017-04-29 04:36] LABS: HEMATOCRIT 32.6 % (38.0-50.0); HEMOGLOBIN 11.3 G/DL (12.5-16.6); MCV 90.3 FL (86-99)
[2017-04-29 05:45] VITALS: BP 133/81
[2017-04-29 08:48] VITALS: BP 140/85
[2017-04-29 12:49] LABS: HEMATOCRIT 32.4 % (38.0-50.0); HEMOGLOBIN 11.1 G/DL (12.5-16.6); MCV 90.3 FL (86-99)
[2017-04-29 16:20] VITALS: BP 118/72
[2017-04-29 20:05] LABS: CHLORIDE 99 MEQ/L (99-109); GFR ESTIMATE (CALCULATED) > 59 mL/min/ (58.99-99999); POTASSIUM 3.6 MEQ/L (3.7-5.4); SODIUM 132 MEQ/L (136-147); UREA NITROGEN (BUN) 10 mg/dL (9-23)
[2017-04-29 20:16] LABS: GLUCOSE 249 mg/dL (70-99)
[2017-04-30 00:06] VITALS: BP 124/76
[2017-04-30 07:43] LABS: CHLORIDE 104 MEQ/L (99-109); CREATININE 0.7 MG/DL (0.6-1.3); GFR ESTIMATE (CALCULATED) > 59 mL/min/ (58.99-99999); GLUCOSE 78 mg/dL (70-99); MAGNESIUM 1.7 mg/dl (1.3-2.7); POTASSIUM 3.4 MEQ/L (3.7-5.4); SODIUM 141 MEQ/L (136-147); UREA NITROGEN (BUN) 10 mg/dL (9-23)
[2017-04-30 08:50] VITALS: BP 121/77
[2017-04-30] MEDS ORDERED: PANTOPRAZOLE SO40 MG PO (09:53)
== END 2017-04-30 10:52 | disposition home or self-care (01) | DRG 639 ==
LOC: EME 07:05 → EDOF 09:14 → 4WEST 09:14 → ENRESERV 09:18 → 4WEST 10:15 → ENRESERV 04-28 15:31 → 5EAST 04-28 17:32 → ENPENDDIS 04-30 → 5EAST 04-30 10:52
PROVIDERS: Hospitalist; Internal Medicine Critical Care Medicine; Internal Medicine Gastroenterology; Nurse Practitioner Family; Obstetrics & Gynecology
PROC: 0DJ08ZZ Inspection of Upper Intestinal Tract, Via Natural or Artificial Opening Endoscopic (ICD-10-PCS; principal; 2017-04-28)
DX: E11.10 Type 2 diabetes mellitus with ketoacidosis without coma (principal); E11.649 Type 2 diabetes mellitus with hypoglycemia without coma; K21.0 Gastro-esophageal reflux disease with esophagitis; K58.9 Irritable bowel syndrome, unspecified; I10 Essential (primary) hypertension; E03.9 Hypothyroidism, unspecified; E78.00 Pure hypercholesterolemia, unspecified; G43.909 Migraine, unspecified, not intractable, without status migrainosus; F32.9 Major depressive disorder, single episode, unspecified; F41.9 Anxiety disorder, unspecified; Z87.11 Personal history of peptic ulcer disease; Z86.74 Personal history of sudden cardiac arrest; Z91.14 Patient's other noncompliance with medication regimen; I25.2 Old myocardial infarction; Z79.4 Long term (current) use of insulin
CPT/HCPCS: 71046; 80048; 80048 91; 80053; 80076; 81003; 82010; 82803; 82948; 83036; 83605; 83735; 84100; 84443; 85014; 85018; 85025; 85027; 86850; 86900; 86901; 87077; 87086; 87186; 87502; 87641; 93005; 99281; 99285; C9113; J1815; J2250; J2270; J2765; J3010; J3480; J7030; J7050; S0028

== ENCOUNTER 2017-08-28 03:31 | Inpatient (IN) | payer SELFPAY ==
[2017-08-28] VITALS (10 sets, daily range): BP systolic 109–136; BP diastolic 62–93
[~2017-08-28] VITALS: Ht 172.7 cm; Wt 87.5 kg
[~2017-08-28 03:31] MED LIST changes: +PANTOPRAZOLE SO40 MG PO; +SIMVASTATIN80 MG PO
[2017-08-28 03:57] LABS: HEMATOCRIT 40.4 % (38.0-50.0); HEMOGLOBIN 14.1 G/DL (12.5-16.6); MCH 31.3 PG (29.0-34.0); MCHC 34.9 G/DL (30.0-36.0); MCV 89.8 FL (86-99); PLATELET COUNT 302 K/uL (156-360); RBC DIS.WIDTH-CV 12.8 % (11.8-14.6); RBC DIS.WIDTH-SD 42.2 % (39-53); WHITE BLOOD COUNT 10.7 K/uL (4.1-10.2)
[2017-08-28 04:07] LABS: ALBUMIN 4.7 g/dL (3.2-4.8)
[2017-08-28 04:08] LABS: CHLORIDE 97 mEq/L (99-109); POTASSIUM 4.4 mEq/L (3.7-5.4); SODIUM 133 mEq/L (136-147)
[2017-08-28 04:12] LABS: TOTAL BILIRUBIN 0.5 mg/dL (0.0-1.0)
[2017-08-28 04:13] LABS: ALKALINE PHOSPHATASE 97 IU/L (3-129)
[2017-08-28 04:14] LABS: CREATININE 1.6 mg/dL (0.6-1.3); GFR ESTIMATE (CALCULATED) 51 mL/min/ (58.99-99999)
[2017-08-28 04:15] LABS: AST (GOT) 35 IU/L (2-34); UREA NITROGEN (BUN) 18 mg/dL (9-23)
[2017-08-28 04:17] LABS: ALT (GPT) 52 IU/L (3-49); LIPASE 12 U/L (1.0-51.0)
[2017-08-28 04:21] LABS: GLUCOSE 526 mg/dL (70-99)
[2017-08-28 04:34] LABS: INTER. NORMALIZED RATIO 0.9
[2017-08-28 05:02] LABS: APPEARANCE CLEAR ((CLEAR)); BILIRUBIN NEGATIVE; BLOOD SMALL; COLOR COLORLESS ((YELLOW)); GLUCOSE (STRIP) >=500; KETONES 80; LEUKOCYTES NEGATIVE; NITRITE NEGATIVE; PROTEIN (STRIP) NEGATIVE; SPECIFIC GRAVITY 1.026 (1.000-1.030); UROBILINOGEN 0.2 MG/DL (0.2-1.0)
[2017-08-28 05:03] LABS: BACTERIA NONE SEEN /HPF; EPITHELIAL CELLS RARE /HPF; MUCUS NONE SEEN /LPF; RED BLOOD CELLS 0-5 /HPF (0-5); UCUL ADDED? NO; WHITE BLOOD CELLS NONE SEEN /HPF (0-5)
[2017-08-28 05:22] LABS: CARBON DIOXIDE (BICARBONATE) 15.2 MEQ/L (20-31)
[2017-08-28 08:21] LABS: CHLORIDE 103 mEq/L (99-109); POTASSIUM 4.5 mEq/L (3.7-5.4); SODIUM 138 mEq/L (136-147)
[2017-08-28 08:25] LABS: GLUCOSE 228 mg/dL (70-99); GLUCOSE 231 mg/dL (70-99)
[2017-08-28 08:27] LABS: CREATININE 1.2 mg/dL (0.6-1.3); GFR ESTIMATE (CALCULATED) > 59 mL/min/ (58.99-99999); PHOSPHORUS 1.8 mg/dL (2.5-4.9)
[2017-08-28 08:28] LABS: UREA NITROGEN (BUN) 15 mg/dL (9-23)
[2017-08-28] MEDS ORDERED: ACETAMINOPHEN325 M1 PO (09:25)
[2017-08-28] MEDS ORDERED: PANTOPRAZOLE SO40 MG PO (09:25)
[2017-08-28 10:39] LABS: HEMOGLOBIN A1c (GLYCOHEMOGLOB) 11.4 % (Below 5.7)
[2017-08-28 12:52] LABS: CHLORIDE 101 MEQ/L (99-109); CREATININE 0.9 MG/DL (0.6-1.3); GFR ESTIMATE (CALCULATED) > 59 mL/min/ (58.99-99999); GLUCOSE 163 mg/dL (70-99); PHOSPHORUS 2.5 mg/dL (2.5-4.9); POTASSIUM 4.9 MEQ/L (3.7-5.4); SODIUM 137 MEQ/L (136-147); UREA NITROGEN (BUN) 14 mg/dL (9-23)
[2017-08-28 18:25] LABS: CHLORIDE 103 MEQ/L (99-109); CREATININE 0.8 MG/DL (0.6-1.3); GFR ESTIMATE (CALCULATED) > 59 mL/min/ (58.99-99999); GLUCOSE 129 mg/dL (70-99); MAGNESIUM 1.6 mg/dl (1.3-2.7); PHOSPHORUS 3.1 mg/dL (2.5-4.9); POTASSIUM 4.7 MEQ/L (3.7-5.4); SODIUM 137 MEQ/L (136-147); UREA NITROGEN (BUN) 11 mg/dL (9-23)
[2017-08-29] VITALS (16 sets, daily range): BP systolic 102–127; BP diastolic 58–83
[2017-08-29 00:39] LABS: CHLORIDE 104 mEq/L (99-109); POTASSIUM 3.7 mEq/L (3.7-5.4); SODIUM 135 mEq/L (136-147)
[2017-08-29 00:40] LABS: MAGNESIUM 1.6 mg/dL (1.3-2.7)
[2017-08-29 00:45] LABS: GFR ESTIMATE (CALCULATED) > 59 mL/min/ (58.99-99999); GLUCOSE 228 mg/dL (70-99)
[2017-08-29 00:46] LABS: UREA NITROGEN (BUN) 8 mg/dL (9-23)
[2017-08-29 06:03] LABS: CHLORIDE 103 MEQ/L (99-109); CREATININE 0.8 MG/DL (0.6-1.3); GFR ESTIMATE (CALCULATED) > 59 mL/min/ (58.99-99999); GLUCOSE 171 mg/dL (70-99); MAGNESIUM 1.5 mg/dl (1.3-2.7); POTASSIUM 3.4 MEQ/L (3.7-5.4); SODIUM 133 MEQ/L (136-147); UREA NITROGEN (BUN) 8 mg/dL (9-23)
[2017-08-29 12:46] LABS: CHLORIDE 103 MEQ/L (99-109); CREATININE 0.7 MG/DL (0.6-1.3); GFR ESTIMATE (CALCULATED) > 59 mL/min/ (58.99-99999); GLUCOSE 189 mg/dL (70-99); MAGNESIUM 1.5 mg/dl (1.3-2.7); POTASSIUM 3.9 MEQ/L (3.7-5.4); SODIUM 135 MEQ/L (136-147); UREA NITROGEN (BUN) 6 mg/dL (9-23)
[2017-08-29] MEDS ORDERED: NOVOLOG PE100 UNITS/ SC (14:53)
== END 2017-08-29 16:05 | disposition left against medical advice (07) | DRG 638 ==
LOC: EME 03:31 → EDOF 05:44 → 4WEST 05:44 → ENRESERV 05:45 → 4WEST 08:14
PROVIDERS: Emergency Medicine; Internal Medicine; Internal Medicine Critical Care Medicine
DX: E10.10 Type 1 diabetes mellitus with ketoacidosis without coma (principal); K92.0 Hematemesis; E86.0 Dehydration; R79.89 Other specified abnormal findings of blood chemistry; I10 Essential (primary) hypertension; E78.5 Hyperlipidemia, unspecified; K21.9 Gastro-esophageal reflux disease without esophagitis; Z86.74 Personal history of sudden cardiac arrest; I25.2 Old myocardial infarction; Z79.4 Long term (current) use of insulin; Z87.11 Personal history of peptic ulcer disease
CPT/HCPCS: 71045; 80048; 80048 91; 80053; 81003; 82010; 82803; 82947 91; 82948; 83036; 83690; 83735; 84100; 85027; 85610; 85730; 87641; 99281; 99284; C9113; J1815; J2405; J2765; J7030; J7040; J7050; S0028

== ENCOUNTER 2017-09-13 14:32 | Inpatient (IN) | payer OTHER ==
[~2017-09-13] VITALS: Ht 172.7 cm; Wt 87.4 kg
[~2017-09-13 14:32] MED LIST changes: +ACETAMINOPHEN325 M1 PO
[2017-09-13 15:25] LABS: HEMATOCRIT 38.8 % (38.0-50.0); HEMOGLOBIN 13.6 G/DL (12.5-16.6); MCH 31.2 PG (29.0-34.0); MCHC 35.1 G/DL (30.0-36.0); PLATELET COUNT 297 K/uL (156-360); RBC DIS.WIDTH-CV 13.2 % (11.8-14.6); RBC DIS.WIDTH-SD 43.4 % (39-53); RED BLOOD COUNT 4.36 M/uL (4.00-5.50); WHITE BLOOD COUNT 12.6 K/uL (4.1-10.2)
[2017-09-13 15:33] LABS: CARBON DIOXIDE (BICARBONATE) 16.3 MEQ/L (20-31)
[2017-09-13 15:33] LABS: ALBUMIN 4.6 g/dL (3.2-4.8)
[2017-09-13 15:34] LABS: CHLORIDE 94 mEq/L (99-109); POTASSIUM 5.4 mEq/L (3.7-5.4); SODIUM 133 mEq/L (136-147)
[2017-09-13 15:36] LABS: TOTAL PROTEIN 7.8 g/dL (6.4-8.3)
[2017-09-13 15:38] LABS: TOTAL BILIRUBIN 0.8 mg/dL (0.0-1.0)
[2017-09-13 15:39] LABS: ALKALINE PHOSPHATASE 104 IU/L (3-129)
[2017-09-13 15:40] LABS: CREATININE 1.4 mg/dL (0.6-1.3); GFR ESTIMATE (CALCULATED) > 59 mL/min/ (58.99-99999)
[2017-09-13 15:41] LABS: UREA NITROGEN (BUN) 29 mg/dL (9-23)
[2017-09-13 15:42] LABS: ALT (GPT) 61 IU/L (3-49)
[2017-09-13 15:43] LABS: AST (GOT) 34 IU/L (2-34); GLUCOSE 594 mg/dL (70-99); LIPASE 11 U/L (1.0-51.0)
[2017-09-13 16:57] LABS: APPEARANCE CLEAR ((CLEAR)); BILIRUBIN NEGATIVE; BLOOD SMALL; COLOR COLORLESS ((YELLOW)); GLUCOSE (STRIP) >=500; KETONES 80; LEUKOCYTES NEGATIVE; NITRITE NEGATIVE; PROTEIN (STRIP) NEGATIVE; SPECIFIC GRAVITY 1.025 (1.000-1.030); UROBILINOGEN 0.2 MG/DL (0.2-1.0)
[2017-09-13 17:05] LABS: BACTERIA NONE SEEN /HPF; EPITHELIAL CELLS NONE SEEN /HPF; MUCUS NONE SEEN /LPF; RED BLOOD CELLS 0-5 /HPF (0-5); UCUL ADDED? NO; WHITE BLOOD CELLS 0-5 /HPF (0-5)
[2017-09-14] VITALS (14 sets, daily range): BP systolic 92–144; BP diastolic 58–90
[2017-09-14 01:37] LABS: BASOPHIL (%) 0.2 % (0-1); EOSINOPHIL (%) 0.1 % (0-5); HEMATOCRIT 37.3 % (38.0-50.0); HEMOGLOBIN 13.1 G/DL (12.5-16.6); IMMATURE GRANULOCYTE (%) 0.4 % (0.0-0.7); LYMPHOCYTE (%) 14.3 % (15-42); LYMPHOCYTE COUNT 1.6 K/uL (1.0-2.8); MCH 31.3 PG (29.0-34.0); MCHC 35.1 G/DL (30.0-36.0); MONOCYTE COUNT 0.7 K/uL (0-0.8); NEUTROPHIL COUNT 8.9 K/uL (1.8-6.4); PLATELET COUNT 296 K/uL (156-360); RBC DIS.WIDTH-CV 13.7 % (11.8-14.6); RBC DIS.WIDTH-SD 44.3 % (39-53); RED BLOOD COUNT 4.19 M/uL (4.00-5.50); WHITE BLOOD COUNT 11.2 K/uL (4.1-10.2)
[2017-09-14 01:45] LABS: POTASSIUM 4.5 mEq/L (3.7-5.4)
[2017-09-14 01:46] LABS: CHLORIDE 105 mEq/L (99-109); MAGNESIUM 1.8 mg/dL (1.3-2.7); SODIUM 141 mEq/L (136-147)
[2017-09-14 01:48] LABS: GLUCOSE 172 mg/dL (70-99)
[2017-09-14 01:51] LABS: CREATININE 1.1 mg/dL (0.6-1.3); GFR ESTIMATE (CALCULATED) > 59 mL/min/ (58.99-99999)
[2017-09-14 01:52] LABS: UREA NITROGEN (BUN) 21 mg/dL (9-23)
[2017-09-14 01:54] LABS: PHOSPHORUS 2.8 mg/dL (2.5-4.9)
[2017-09-14 06:59] LABS: BASOPHIL (%) 0.2 % (0-1); EOSINOPHIL (%) 0.7 % (0-5); EOSINOPHIL COUNT 0.1 K/uL (0-0.3); HEMATOCRIT 34.9 % (38.0-50.0); HEMOGLOBIN 11.9 G/DL (12.5-16.6); IMMATURE GRANULOCYTE (%) 0.2 % (0.0-0.7); LYMPHOCYTE (%) 16.8 % (15-42); LYMPHOCYTE COUNT 1.5 K/uL (1.0-2.8); MCH 30.7 PG (29.0-34.0); MCHC 34.1 G/DL (30.0-36.0); MCV 90.2 FL (86-99); MONOCYTE (%) 6.7 % (3-12); MONOCYTE COUNT 0.6 K/uL (0-0.8); NEUTROPHIL (%) 75.4 % (45-76); NEUTROPHIL COUNT 6.6 K/uL (1.8-6.4); RBC DIS.WIDTH-SD 46.5 % (39-53); RED BLOOD COUNT 3.87 M/uL (4.00-5.50); WHITE BLOOD COUNT 8.8 K/uL (4.1-10.2)
[2017-09-14 07:00] LABS: CHLORIDE 103 MEQ/L (99-109); MAGNESIUM 1.7 mg/dl (1.3-2.7); POTASSIUM 4.2 MEQ/L (3.7-5.4); SODIUM 136 MEQ/L (136-147)
[2017-09-14 07:05] LABS: CREATININE 0.9 MG/DL (0.6-1.3); GFR ESTIMATE (CALCULATED) > 59 mL/min/ (58.99-99999); GLUCOSE 177 mg/dL (70-99); PHOSPHORUS 2.6 mg/dL (2.5-4.9); UREA NITROGEN (BUN) 21 mg/dL (9-23)
[2017-09-14 11:39] LABS: PLATELET COUNT 69 K/uL (156-360)
[2017-09-14 13:59] LABS: HEMATOCRIT 33.6 % (38.0-50.0); HEMOGLOBIN 11.6 G/DL (12.5-16.6); MCH 30.6 PG (29.0-34.0); MCHC 34.5 G/DL (30.0-36.0); MCV 88.7 FL (86-99); RBC DIS.WIDTH-CV 14.1 % (11.8-14.6); RBC DIS.WIDTH-SD 45.9 % (39-53); RED BLOOD COUNT 3.79 M/uL (4.00-5.50); WHITE BLOOD COUNT 6.7 K/uL (4.1-10.2)
[2017-09-14 14:04] LABS: PLATELET COUNT 248 K/uL (156-360)
[2017-09-14 14:23] LABS: CHLORIDE 103 MEQ/L (99-109); CREATININE 0.8 MG/DL (0.6-1.3); GFR ESTIMATE (CALCULATED) > 59 mL/min/ (58.99-99999); GLUCOSE 151 mg/dL (70-99); MAGNESIUM 1.7 mg/dl (1.3-2.7); PHOSPHORUS 2.2 mg/dL (2.5-4.9); POTASSIUM 3.5 MEQ/L (3.7-5.4); SODIUM 137 MEQ/L (136-147); UREA NITROGEN (BUN) 19 mg/dL (9-23)
[2017-09-14 17:51] LABS: HEMATOCRIT 33.2 % (38.0-50.0); HEMOGLOBIN 11.4 G/DL (12.5-16.6); MCH 30.9 PG (29.0-34.0); MCHC 34.3 G/DL (30.0-36.0); PLATELET COUNT 227 K/uL (156-360); RBC DIS.WIDTH-SD 46.1 % (39-53); RED BLOOD COUNT 3.69 M/uL (4.00-5.50); WHITE BLOOD COUNT 6.7 K/uL (4.1-10.2)
[2017-09-14 18:05] LABS: CHLORIDE 101 MEQ/L (99-109); MAGNESIUM 1.6 mg/dl (1.3-2.7); POTASSIUM 3.4 MEQ/L (3.7-5.4); SODIUM 136 MEQ/L (136-147)
[2017-09-14 18:10] LABS: CREATININE 0.8 MG/DL (0.6-1.3); GFR ESTIMATE (CALCULATED) > 59 mL/min/ (58.99-99999); GLUCOSE 152 mg/dL (70-99); PHOSPHORUS 2.4 mg/dL (2.5-4.9); UREA NITROGEN (BUN) 18 mg/dL (9-23)
[2017-09-16 09:05] LABS: HEMOGLOBIN A1c (GLYCOHEMOGLOB) 11.8 % (Below 5.7)
== END 2017-09-14 20:45 | disposition home or self-care (01) | DRG 637 ==
LOC: EME 14:32 → EDOF 17:59 → 4WEST 17:59 → ENRESERV 18:00 → ENRESERVTM 23:04 → ENRESERV 23:04 → ENRESERVDT 23:04 → 4WEST 09-14 00:36
PROVIDERS: Emergency Medicine; Internal Medicine Critical Care Medicine; Specialist
DX: E10.10 Type 1 diabetes mellitus with ketoacidosis without coma (principal); I10 Essential (primary) hypertension; E78.5 Hyperlipidemia, unspecified; Z91.19 Patient's noncompliance with other medical treatment and regimen; Z79.4 Long term (current) use of insulin; K22.6 Gastro-esophageal laceration-hemorrhage syndrome
CPT/HCPCS: 80048; 80048 91; 80053; 81003; 82010; 82803; 82948; 83036; 83605; 83690; 83735; 84100; 85025; 85025 91; 85027; 86850; 86900; 86901; 87641; 99281; 99285; J1815; J2405; J2765; J7030; J7050

== ENCOUNTER 2017-10-22 10:39 | Observation (INO) | payer OTHER ==
[~2017-10-22] VITALS: Ht 170.2 cm; Wt 91.0 kg
[2017-10-22 12:24] LABS: APPEARANCE CLEAR ((CLEAR)); BILIRUBIN NEGATIVE; BLOOD NEGATIVE; COLOR YELLOW ((YELLOW)); GLUCOSE (STRIP) 150; KETONES NEGATIVE; LEUKOCYTES NEGATIVE; NITRITE NEGATIVE; PROTEIN (STRIP) 100; SPECIFIC GRAVITY 1.024 (1.000-1.030); UROBILINOGEN 0.2 MG/DL (0.2-1.0)
[2017-10-22 12:26] LABS: BACTERIA NONE SEEN /HPF; EPITHELIAL CELLS NONE SEEN /HPF; MUCUS TRACE /LPF; RED BLOOD CELLS 0-5 /HPF (0-5); UCUL ADDED? NO; WHITE BLOOD CELLS 0-5 /HPF (0-5)
[2017-10-22 12:28] LABS: HEMATOCRIT 37.8 % (38.0-50.0); HEMOGLOBIN 13.6 G/DL (12.5-16.6); MCH 31.4 PG (29.0-34.0); MCV 87.3 FL (86-99); PLATELET COUNT 283 K/uL (156-360); RBC DIS.WIDTH-CV 13.3 % (11.8-14.6); RED BLOOD COUNT 4.33 M/uL (4.00-5.50); WHITE BLOOD COUNT 14.8 K/uL (4.1-10.2)
[2017-10-22 12:35] LABS: ALBUMIN 4.6 g/dL (3.2-4.8); CHLORIDE 106 mEq/L (99-109); POTASSIUM 3.6 mEq/L (3.7-5.4); SODIUM 144 mEq/L (136-147)
[2017-10-22 12:37] LABS: GLUCOSE 133 mg/dL (70-99); TOTAL PROTEIN 7.7 g/dL (6.4-8.3)
[2017-10-22 12:39] LABS: TOTAL BILIRUBIN 0.6 mg/dL (0.0-1.0)
[2017-10-22 12:41] LABS: ALKALINE PHOSPHATASE 74 IU/L (3-129); CREATININE 0.9 mg/dL (0.6-1.3); GFR ESTIMATE (CALCULATED) > 59 mL/min/ (58.99-99999)
[2017-10-22 12:42] LABS: UREA NITROGEN (BUN) 11 mg/dL (9-23)
[2017-10-22 12:43] LABS: AST (GOT) 27 IU/L (2-34)
[2017-10-22 12:44] LABS: ALT (GPT) 38 IU/L (3-49)
[2017-10-22] MEDS ORDERED: NOVOLOG PE100 UNITS/ SC (13:29)
[2017-10-22] MEDS ORDERED: ZANTAC150 MG PO (13:29)
[2017-10-22 16:54] VITALS: BP 140/86
[2017-10-22 16:54] LABS: HEMATOCRIT 38.9 % (38.0-50.0); HEMOGLOBIN 13.3 G/DL (12.5-16.6); MCV 88.6 FL (86-99)
[2017-10-22 19:57] VITALS: BP 133/78
[2017-10-23 00:06] VITALS: BP 119/64
[2017-10-23 00:58] LABS: HEMATOCRIT 33.5 % (38.0-50.0); HEMOGLOBIN 12.1 G/DL (12.5-16.6); MCV 86.8 FL (86-99)
[2017-10-23 05:09] VITALS: BP 119/57
[2017-10-23 08:02] VITALS: BP 117/72
[2017-10-23 09:13] LABS: HEMATOCRIT 32.8 % (38.0-50.0); HEMOGLOBIN 11.6 G/DL (12.5-16.6); MCV 89.1 FL (86-99)
[2017-10-23] MEDS ORDERED: PANTOPRAZOLE SO40 MG PO (14:45)
== END 2017-10-23 15:36 | disposition home or self-care (01) ==
LOC: EME 10:39 → EDOF 13:06 → 4SOUTH 13:06 → ENRESERV 13:07 → 4SOUTH 15:43
PROVIDERS: Emergency Medicine; Internal Medicine
PROC: 0DB38ZX Excision of Lower Esophagus, Via Natural or Artificial Opening Endoscopic, Diagnostic (ICD-10-PCS; principal; 2017-10-23)
DX: K92.0 Hematemesis (principal); K22.10 Ulcer of esophagus without bleeding; K21.0 Gastro-esophageal reflux disease with esophagitis; D50.0 Iron deficiency anemia secondary to blood loss (chronic); E10.9 Type 1 diabetes mellitus without complications; E78.5 Hyperlipidemia, unspecified; K44.9 Diaphragmatic hernia without obstruction or gangrene; E87.6 Hypokalemia; Z87.19 Personal history of other diseases of the digestive system; Z79.4 Long term (current) use of insulin; Z91.19 Patient's noncompliance with other medical treatment and regimen
CPT/HCPCS: 80053; 81003; 82948; 85014; 85018; 85027; 88305; 99281; 99285; C9113; G0378; J1815; J2250; J2405; J2765; J7030; J7050